=== PATIENT | male | born 1945 | race Caucasian/White ===

== ENCOUNTER 2024-02-12 11:28 | Inpatient (IN) | payer OTHER ==
[~2024-02-12] VITALS: Ht 170.2 cm; Wt 77.1 kg
[2024-02-12] MEDS ORDERED: diphenhydrAMINE HCL 50 MG/ML VIAL ONE (12:09)
[2024-02-12] MEDS ORDERED: METOCLOPRAMIDE HCL 10 MG/2 ML VIAL ONE (12:10)
[2024-02-12] MEDS ORDERED: MECLIZINE HCL 25 MG TABLET ONE (12:10)
[2024-02-12 12:15] LABS: BASOPHILS % (AUTO) 0.5 % (0.0-2.0); EOSINOPHILS # (AUTO) 0.2 K/uL (0.0-0.7); EOSINOPHILS % (AUTO) 3.7 % (0.0-6.0); HEMATOCRIT 41 % (39-51); HEMOGLOBIN 14.3 g/dL (13.5-17.5); LYMPHOCYTES # (AUTO) 1.2 K/uL (0.8-4.8); LYMPHOCYTES % (AUTO) 24.9 % (20.0-44.0); MEAN CORPUSCULAR HEMOGLOBIN 33 PG (26.0-33.0); MEAN CORPUSCULAR HGB CONC 35 g/dl (31.0-36.0); MEAN CORPUSCULAR VOLUME 96 fL (80-96); MONOCYTES # (AUTO) 0.6 K/uL (0.1-1.30); MONOCYTES % (AUTO) 13.2 % (2.0-12.0); NEUTROPHILS # (AUTO) 2.8 K/uL (1.8-8.9); NEUTROPHILS % (AUTO) 57.7 % (43.0-81.0); PLATELET COUNT (AUTO) 118 K/uL (150-450); RED BLOOD CELL COUNT(AUTO) 4.28 MIL/uL (4.5-6.0); RED CELL DISTRIBUTION WIDTH 14.2 % (11.5-15.0); WHITE BLOOD COUNT (AUTO) 4.8 K/uL (4.3-11.0)
[2024-02-12] MEDS ORDERED: IOHEXOL-350 100 ML VIAL IV ONE ×2 (12:19)
[2024-02-12] MEDS ORDERED: IV NS 0.9% 250 ML IV ONE (12:19)
[2024-02-12] MEDS ORDERED: CT SWABBABLE VALVE TRANS SET 1 EA INFUS.SET MC ONE ×2 (12:19)
[2024-02-12 12:26] LABS: CALCIUM, SERUM 8.5 mg/dL (8.5-10.1); CARBON DIOXIDE 28 mmol/L (21-32); CHLORIDE 106 mmol/L (98-107); GLUCOSE 115 mg/dL (74-106); POTASSIUM 4.7 mmol/L (3.5-5.1); SODIUM SERUM 141 mmol/L (136-145); UREA NITROGEN, BLOOD 18 mg/dL (7-18)
[2024-02-12 12:33] LABS: ALANINE AMINOTRANSFERASE 28 U/L (12-78); ALBUMIN 3.5 g/dL (3.4-5.0); ALKALINE PHOSPHATASE 95 U/L (46-116); ASPARTATE AMINOTRANSFERASE 24 U/L (15-37); BILIRUBIN,DIRECT 0.1 mg/dL (0.0-0.2); BILIRUBIN,TOTAL 0.6 mg/dL (0.2-1.0); TOTAL PROTEIN, SERUM 7.3 g/dL (6.4-8.2)
[2024-02-12] MEDS: diphenhydrAMINE HCL 50 MG/ML VIAL IV ONE (12:41)
[2024-02-12] MEDS: IV NS 0.9% 1,000 ML BAG IV ONE (12:42)
[2024-02-12] MEDS ORDERED: TAMS-12 PO (12:44)
[2024-02-12] MEDS: METOCLOPRAMIDE HCL 10 MG/2 ML VIAL IV ONE (12:44)
[2024-02-12] MEDS ORDERED: OMEP40CA21 PO (12:44)
[2024-02-12 12:49] LABS: INR 1.09 (0.91-1.10); PARTIAL THROMBOPLASTIN TIME 24.7 SEC (24.3-34.3); PROTHROMBIN TIME 11.5 SECS (9.2-11.1)
[2024-02-12] MEDS: MECLIZINE HCL 12.5 MG TABLET PO ONE (12:56)
[2024-02-12] MEDS ORDERED: Z GUARD REMEDY 4 OZ OINT TP PRN (14:30)
[2024-02-12] MEDS ORDERED: MAGNESIUM HYDROXIDE 30 ML UDC PO PRN (14:30)
[2024-02-12] MEDS ORDERED: ZOLPIDEM TARTRATE 5 MG TABLET PO PRN (14:30)
[2024-02-12] MEDS ORDERED: MAG HYDROX/AL HYDROX/SIMETH 30 ML UDC PO PRN (14:30)
[2024-02-12] MEDS ORDERED: ONDANSETRON HCL/PF 4 MG/2 ML VIAL IVP PRN (14:30)
[2024-02-12] MEDS: ENOXAPARIN SODIUM 40 MG/0.4 ML DISP.SYRIN SQ SCH (15:48)
[2024-02-12 16:08] VITALS: BP 129/75; TEMP 98.1; O2SAT 96
[2024-02-12] MEDS: ASPIRIN 81 MG TAB.CHEW PO SCH (18:09)
[2024-02-12 20:00] VITALS: BP 126/72; TEMP 98.2; O2SAT 95
[2024-02-12] MEDS: ATORVASTATIN 40 MG TABLET PO SCH (21:29)
[2024-02-12 23:23] VITALS: BP 126/72; TEMP 98.2; O2SAT 95
[2024-02-13] VITALS (7 sets, daily range): BP systolic 101–114; BP diastolic 55–67; TEMP 98.1–98.8; O2SAT 95–98
[2024-02-13 07:04] LABS: BASOPHILS % (AUTO) 0.5 % (0.0-2.0); EOSINOPHILS # (AUTO) 0.1 K/uL (0.0-0.7); EOSINOPHILS % (AUTO) 2.5 % (0.0-6.0); HEMATOCRIT 41 % (39-51); HEMOGLOBIN 13.5 g/dL (13.5-17.5); LYMPHOCYTES # (AUTO) 1.1 K/uL (0.8-4.8); LYMPHOCYTES % (AUTO) 18.6 % (20.0-44.0); MEAN CORPUSCULAR HEMOGLOBIN 32 PG (26.0-33.0); MEAN CORPUSCULAR HGB CONC 33 g/dl (31.0-36.0); MEAN CORPUSCULAR VOLUME 95 fL (80-96); MONOCYTES # (AUTO) 0.8 K/uL (0.1-1.30); MONOCYTES % (AUTO) 14.3 % (2.0-12.0); NEUTROPHILS # (AUTO) 3.7 K/uL (1.8-8.9); NEUTROPHILS % (AUTO) 64.1 % (43.0-81.0); PLATELET COUNT (AUTO) 123 K/uL (150-450); RED BLOOD CELL COUNT(AUTO) 4.27 MIL/uL (4.5-6.0); RED CELL DISTRIBUTION WIDTH 14.5 % (11.5-15.0); WHITE BLOOD COUNT (AUTO) 5.7 K/uL (4.3-11.0)
[2024-02-13 07:24] LABS: CALCIUM, SERUM 8.4 mg/dL (8.5-10.1); CARBON DIOXIDE 26 mmol/L (21-32); CHLORIDE 107 mmol/L (98-107); GLUCOSE 88 mg/dL (74-106); PHOSPHORUS 2.8 mg/dL (2.5-4.9); POTASSIUM 4.2 mmol/L (3.5-5.1); SODIUM SERUM 142 mmol/L (136-145); UREA NITROGEN, BLOOD 16 mg/dL (7-18)
[2024-02-13 12:05] LABS: THYROID STIMULATING HORMONE 2.88 uIU/mL (0.358-3.74)
[2024-02-13] MEDS: TAMSULOSIN 0.4 MG CAP.SR.24H PO SCH (15:40)
[2024-02-13] MEDS: ACETAMINOPHEN 325 MG TABLET PO PRN (16:53)
[2024-02-14] VITALS: BP_SYST 103; BP_SYST 124; BP_DIAS 59; BP_DIAS 71; TEMP 98.1; O2SAT 94
[2024-02-14 04:00] VITALS: BP 114/69; TEMP 98.1; O2SAT 94
[2024-02-14 04:06] VITALS: BP 114/69; TEMP 98.1; O2SAT 94
[2024-02-14 08:40] VITALS: BP 100/72; TEMP 97.9; O2SAT 96
[2024-02-14] MEDS ORDERED: ATOR40TA PO (10:06)
[2024-02-14] MEDS ORDERED: CLOP75TA15 PO (10:48)
[2024-02-15 13:12] LABS: FOLIC ACID 8.8 ng/mL (>3.0)
== END 2024-02-14 16:24 | disposition home or self-care (01) | DRG 74 ==
LOC: ER 11:58 → TELE 14:46 → MED 15:09 → TELE 16:23 → MED 02-14 12:27
PROVIDERS: ADMIT Internal Medicine; ATTEND Internal Medicine
DX: G90.89 Other disorders of autonomic nervous system (principal); E78.5 Hyperlipidemia, unspecified; R29.700 NIHSS score 0; Z79.899 Other long term (current) drug therapy; N40.0 Benign prostatic hyperplasia without lower urinary tract symptoms; I65.21 Occlusion and stenosis of right carotid artery; I10 Essential (primary) hypertension
CPT/HCPCS: 36415; 70450-TC; 70496-TC; 70498-TC; 71045-TC; 80048-TC; 80076-TC; 82607-TC; 82962-TC; 83735-TC; 83921; 84100-TC; 84425; 84443-TC; 84484-TC; 85025-TC; 85730-TC; 93307-TC; 93880-TC; 97112-TC; 97116-TC; 97530-TC; A4223; G0378; J1200; J1650; J2765; J7030; J7050; J8597; Q9967